=== PATIENT | male | born 1985 | race American Indian/Alaskan Native ===

== ENCOUNTER 2021-08-29 03:17 | Emergency (ER) | payer OTHER ==
[2021-08-29] MEDS ORDERED: methylPREDNISolone Sod Succinate 125 MG/2 ML INJ IM ONE (04:56)
[2021-08-29] MEDS ORDERED: IPRATROPIUM 0.02% NEBU 2.5 ML IH ONE (04:56)
[2021-08-29] MEDS ORDERED: ALBUTEROL 2.5 MG/3 ML NEBU IH ONE (04:56)
--- NOTE | 2021-08-29 06:00 | Emergency Department Report ---
ED Shortness of Breath HPI - General Chief Complaint: Adult Asthma Stated Complaint: ASHTMA Source: patient Mode of arrival: Ambulatory Limitations: No Limitations - History of Present Illness Initial Comments: Patient is a 36-year-old -[place] male with a history of asthma who presents to the ED with complaint of acute onset persistent shortness of breath, dry cough, nasal and sinus congestion for the last 6 hours. Patient states that he has used albuterol inhaler at home as well as albuterol nebulizer with no relief. [facility] and suspects that he may have been exposed to significant pollen. Patient states that he ran out of his albuterol nebulizer at home. Patient denies fever, chills, diaphoresis, palpitations, nausea and vomiting, sore throat, headache, back pain, hematemesis, dysuria, urinary frequency and urgency. MD Complaint: shortness of breath, cough, "asthma attack" -: Sudden, hour(s) (6) Severity: moderate Pain Scale: 6 Quality: aching, other (Chest tightness) Consistency: constant Improves With: bronchodilators Worsens With: movement, coughing Known History Of: asthma Context: recent URI, allergen exposure Associated Symptoms: denies other symptoms, chest pain ( chest tightness), cough Treatments Prior to Arrival: bronchodilator - Related Data Home Oxygen Therapy: No Previous Rx's Medication Instructions Recorded Last Taken Type ALBUTEROL NEB's [Proventil 0.083% 2.5 ml IH Q6H PRN #75 ml 08/29/21 Unknown Rx NEBS] Albuterol Mdi (or & Nicu Only) 2 puff IH QID PRN #1 inh 08/29/21 Unknown Rx [ProAir HFA Inhaler] Benzonatate [Tessalon Perles] 100 mg PO Q8HR #30 cap 08/29/21 Unknown Rx Cetirizine HCl [Zyrtec 10mg tab] 10 mg PO DAILY #30 tab 08/29/21 Unknown Rx Prednisone [predniSONE 10 mg 10 mg PO .TAPER #21 tab 08/29/21 Unknown Rx (6-Day Pack, 21 Tabs)] Allergies Allergy/AdvReac Type Severity Reaction Status Date / Time No Known Allergies Allergy Verified 08/29/21 03:50 ED Review of Systems ROS: Stated complaint: ASHTMA Other details as noted in HPI Constitutional: denies: chills, fever Eyes: denies: eye pain, eye discharge, vision change ENT: congestion. denies: ear pain, throat pain Respiratory: cough, shortness of breath, wheezing Cardiovascular: denies: chest pain, palpitations Endocrine: no symptoms reported. denies: excessive sweating, flushing Gastrointestinal: denies: abdominal pain, nausea, diarrhea Genitourinary: denies: urgency, dysuria Musculoskeletal: denies: back pain, joint swelling, arthralgia Skin: denies: rash, lesions Neurological: denies: headache, weakness, paresthesias Psychiatric: denies: anxiety, depression Hematological/Lymphatic: denies: easy bleeding, easy bruising ED Past Medical Hx - Past Medical History Previous Medical History?: Yes Hx Asthma: Yes - Surgical History Past Surgical History?: No - Social History Smoking Status: Never Smoker Substance Use Type: None - Medications Home Medications: Home Medications Medication Instructions Recorded Confirmed Last Taken Type ALBUTEROL NEB's [Proventil 0.083% 2.5 ml IH Q6H PRN #75 ml 08/29/21 Unknown Rx NEBS] Albuterol Mdi (or & Nicu Only) 2 puff IH QID PRN #1 inh 08/29/21 Unknown Rx [ProAir HFA Inhaler] Benzonatate [Tessalon Perles] 100 mg PO Q8HR #30 cap 08/29/21 Unknown Rx Cetirizine HCl [Zyrtec 10mg tab] 10 mg PO DAILY #30 tab 08/29/21 Unknown Rx Prednisone [predniSONE 10 mg 10 mg PO .TAPER #21 tab 08/29/21 Unknown Rx (6-Day Pack, 21 Tabs)] ED Physical Exam - General Limitations: No Limitations General appearance: alert, in no apparent distress - Head Head exam: Present: atraumatic, normocephalic, normal inspection - Eye Eye exam: Present: normal appearance, PERRL, EOMI Pupils: Present: normal accommodation - ENT ENT exam: Present: normal orophraynx, mucous membranes moist, TM's normal bilaterally, normal external ear exam, other (Grossly congested nasal passages) - Neck Neck exam: Present: normal inspection, full ROM. Absent: tenderness - Respiratory Respiratory exam: Present: wheezes (Mildly diffuse coarse wheezes throughout). Absent: normal lung sounds bilaterally, respiratory distress, rales, rhonchi, chest wall tenderness, decreased breath sounds, prolonged expiratory - Cardiovascular Cardiovascular Exam: Present: normal rhythm, bradycardia, normal heart sounds. Absent: systolic murmur, diastolic murmur, rubs, gallop - GI/Abdominal GI/Abdominal exam: Present: soft, normal bowel sounds. Absent: distended, tenderness, guarding, rebound, hyperactive bowel sounds, hypoactive bowel sounds, organomegaly, mass - Extremities Exam Extremities exam: Present: normal inspection, full ROM, normal capillary refill. Absent: tenderness - Back Exam Back exam: Present: normal inspection, full ROM. Absent: tenderness, CVA tenderness (R), CVA tenderness (L), muscle spasm, paraspinal tenderness, vertebral tenderness - Neurological Exam Neurological exam: Present: alert, oriented X3, CN II-XII intact, normal gait, reflexes normal - Psychiatric Psychiatric exam: Present: normal affect, normal mood - Skin Skin exam: Present: warm, dry, intact, normal color. Absent: rash ED Course Vital Signs 08/29/21 08/29/21 03:48 05:52 Temperature 97.8 F Pulse Rate 53 L Pulse Rate [ 78 Bilateral] Respiratory 18 Rate Respiratory 20 Rate [Bilateral ] Blood Pressure 117/52 [Left] O2 Sat by Pulse 96 Oximetry ED Medical Decision Making - Medical Decision Making This is a 36-year-old -[place] male with a history of asthma who presents to the ED with complaint of acute onset persistent shortness of breath, dry cough, nasal and sinus congestion for the last 6 hours. Patient states that he has used albuterol inhaler at home as well as albuterol nebulizer with no relief. Patient states that [facility] and suspects that he may have been exposed to significant pollen. Patient states that he ran out of his albuterol nebulizer at home. In the ED, patient is alert and oriented x3 and is not in any distress. Patient was treated in the ED with DuoNeb nebulizer and was given Solu-Medrol 125 mg intramuscular injection. On reevaluation, patient's wheezing resolved medication. Patient will discharge home on medications and advised to follow-up with his primary care physician in 5 to 7 days for reevaluation or return to the ED immediately if symptoms get worse. - Differential Diagnosis Asthma, URI; Bronchitis; Pneumonia; Rhinitis Critical care attestation.: If time is entered above; I have spent that time in minutes in the direct care of this critically ill patient, excluding procedure time. ED Disposition Clinical Impression: Acute bronchitis with asthma with acute exacerbation, Acute upper respiratory infection Disposition: HOME / SELF CARE / HOMELESS Is pt being admited?: No Does the pt Need Aspirin: No Condition: Stable Instructions: Upper Respiratory Infection, Adult, [id number], Cough, Adult, [id number], Acute Bronchitis, Adult, [id number], Asthma, Adult, [id number] Additional Instructions: Take medication with food, drink plenty of fluids, follow-up with your primary care physician in 5 to 7 days for reevaluation. Return to the ED immediately if symptoms get worse. Prescriptions: Prednisone [predniSONE 10 mg (6-Day Pack, 21 Tabs)] 10 mg PO .TAPER #21 tab Albuterol Mdi (or & Nicu Only) [ProAir HFA Inhaler] 2 puff IH QID PRN #1 inh PRN Reason: Shortness Of Breath ALBUTEROL NEB's [Proventil 0.083% NEBS] 2.5 ml IH Q6H PRN #75 ml PRN Reason: Wheezing Benzonatate [Tessalon Perles] 100 mg PO Q8HR #30 cap Cetirizine HCl [Zyrtec 10mg tab] 10 mg PO DAILY #30 tab Referrals: [facility] [Provider Group] - 7-10 days Forms: Work/School Release Form(ED) Time of Disposition: 06:01 Print Language: SAUDI ARABIAN
[2021-08-29 06:24] VITALS: BP 124/59
== END 2021-08-29 06:24 | disposition home or self-care (01) ==
LOC: ED 03:17
DX: J45.901 Unspecified asthma with (acute) exacerbation (principal); J06.9 Acute upper respiratory infection, unspecified
CPT/HCPCS: 94640; 96372; 99282; J2930; 94644

== ENCOUNTER 2021-09-14 22:13 | Emergency (ER) | payer OTHER | END 2021-09-14 22:25 | disposition left against medical advice (07) | LOC: ED 22:13 | DX: J45.909 Unspecified asthma, uncomplicated (principal); Z53.21 Procedure and treatment not carried out due to patient leaving prior to being seen by health care provider ==